=== PATIENT | female | born 1950 | race Caucasian/White ===

== ENCOUNTER → 2023-03-27 09:43 | Outpatient (BNVA) | payer MEDICARE, SELFPAY | PROVIDERS: Family Provider Physician Assistant Medical; Referring Provider Nurse Practitioner Family; Visit Provider Nurse Practitioner Family | DX: L71.8 Other rosacea (principal); L73.8 Other specified follicular disorders; L72.0 Epidermal cyst; L57.0 Actinic keratosis | CPT/HCPCS: 17000; 17003; 99204 ==

== ENCOUNTER → 2023-07-27 09:58 | Outpatient (BNVA) | payer MEDICARE, SELFPAY | PROVIDERS: Family Provider Physician Assistant Medical; PCP Nurse Practitioner Family; Visit Provider Nurse Practitioner Family | DX: L71.8 Other rosacea (principal); L73.8 Other specified follicular disorders; L72.0 Epidermal cyst; L57.0 Actinic keratosis | CPT/HCPCS: 99214 ==

== ENCOUNTER → 2024-07-28 11:09 | Outpatient (BNVA) | payer MEDICARE, SELFPAY | PROVIDERS: Family Provider Physician Assistant Medical; PCP Nurse Practitioner Family; Visit Provider Nurse Practitioner Family | DX: L71.8 Other rosacea (principal); L73.8 Other specified follicular disorders; L72.0 Epidermal cyst; L72.8 Other follicular cysts of the skin and subcutaneous tissue; D69.2 Other nonthrombocytopenic purpura | CPT/HCPCS: 99214 ==

== ENCOUNTER → 2025-01-26 11:22 | Outpatient (BNVA) | payer MEDICARE, SELFPAY | PROVIDERS: Family Provider Physician Assistant Medical; PCP Nurse Practitioner Family; Visit Provider Nurse Practitioner Family | DX: L71.8 Other rosacea (principal); L72.0 Epidermal cyst; L73.8 Other specified follicular disorders; D69.2 Other nonthrombocytopenic purpura; L57.0 Actinic keratosis | CPT/HCPCS: 17000; 99214 ==